=== PATIENT | female | born 1975 | race Caucasian/White ===

== ENCOUNTER 2017-11-01 07:34 | Outpatient (CLI) | payer OTHER ==
[~2017-11-01 07:34] MED LIST: AZITHROMYCIN500 MG PO; CONEX TABLET1 EACH PO; PROTONIX40 M1; PROVENTIL HFA6.7 GM IH; TUSICOF LIQUID120 ML PO; ZANTAC300 MG
== END 2017-11-01 09:17 | disposition home or self-care (01) ==
LOC: NUCLEAR 07:34
DX: Z08 Encounter for follow-up examination after completed treatment for malignant neoplasm (principal)
CPT/HCPCS: 78802; A9556

== ENCOUNTER 2018-04-12 13:42 | Outpatient (CLI) | payer OTHER | END 2018-04-12 13:51 | disposition home or self-care (01) | LOC: SONOGRAMA 13:42 → MAMO-SONO 14:00 | DX: R10.2 Pelvic and perineal pain (principal); N95.0 Postmenopausal bleeding ==

== ENCOUNTER → 2022-07-21 08:51 | Outpatient (CLI) | payer OTHER | END | disposition home or self-care (01) | LOC: MAMO-SONO 08:51 | PROVIDERS: ATTEND Internal Medicine Cardiovascular Disease | DX: Z12.31 Encounter for screening mammogram for malignant neoplasm of breast (principal); Z12.11 Encounter for screening for malignant neoplasm of colon ==

== ENCOUNTER 2022-08-03 09:29 | Outpatient (CLI) | payer OTHER | END 2022-08-03 09:30 | disposition home or self-care (01) | LOC: NUCLEAR 09:29 | PROVIDERS: ATTEND Internal Medicine Cardiovascular Disease | DX: M81.0 Age-related osteoporosis without current pathological fracture (principal); K91.86 Retained cholelithiasis following cholecystectomy | CPT/HCPCS: 77080; 78227; A9537; J2805 ==

== ENCOUNTER 2022-08-26 10:05 | Outpatient (CLI) | payer OTHER | END 2022-08-26 10:08 | disposition home or self-care (01) | LOC: RAD 10:05 | PROVIDERS: ATTEND Internal Medicine Cardiovascular Disease | DX: R10.2 Pelvic and perineal pain (principal); Z85.3 Personal history of malignant neoplasm of breast; M54.9 Dorsalgia, unspecified; I10 Essential (primary) hypertension ==

== ENCOUNTER 2023-09-21 12:41 | Outpatient (CLI) | payer OTHER | END 2023-09-21 13:05 | disposition home or self-care (01) | LOC: RAD 12:41 | PROVIDERS: ATTEND Internal Medicine Cardiovascular Disease | DX: M25.552 Pain in left hip (principal) ==

== ENCOUNTER 2023-09-28 14:37 | Outpatient (CLI) | payer OTHER | END 2023-09-28 14:47 | disposition home or self-care (01) | LOC: MAMO-SONO 14:37 | PROVIDERS: ATTEND Internal Medicine Cardiovascular Disease | DX: C50.919 Malignant neoplasm of unspecified site of unspecified female breast (principal); Z12.31 Encounter for screening mammogram for malignant neoplasm of breast ==

== ENCOUNTER 2024-01-26 06:36 | Day surgery (SDC) | payer OTHER ==
[2024-01-25 10:47] LABS: URINE APPEARANCE Clear; URINE BILIRRUBIN Negative (NEGATIVE); URINE BLOOD Negative; URINE COLOR Yellow; URINE GLUCOSE Negative (NEGATIVE); URINE LEUKOCYTE Trace; URINE NITRATE Negative; URINE PROTEIN Negative (NEGATIVE); URINE UROBILINOGEN 0.2 E.U./dl
[2024-01-25 10:51] LABS: URINE BACTERIA 109.6 uL (0.0-1933); URINE EPITHELIAL CELLS 8.1 uL (0.0-38.8); URINE RBC 4.3 uL (0.0-20.8); URINE WBC 4.4 uL (0.0-23.2)
[2024-01-25 11:25] LABS: INR 0.96; PARTIAL THROMBOPLASTIN TIME 32.1 SECONDS (22.0-34.0); PROTHROMBIN TIME 10.1 SECONDS (9.0-11.5)
[2024-01-25 11:29] LABS: ALBUMIN 3.8 gm/dL (3.4-5.0); BILIRUBIN TOTAL 1.04 mg/dL (0.3-1.2); CALCIUM 9.2 mg/dL (8.5-10.1); CREATININE SERUM 0.52 mg/dL (0.55-1.02); GFR 124.82; GLOBULINA 3.5 G/DL (2.4-3.5); POTASSIUM 4.08 mEq/L (3.5-5.1); TOTAL PROTEIN 7.3 gm/dL (6.4-8.2)
[2024-01-25 11:30] LABS: HEMATOCRIT 38.7 % (36.0-45.00); HEMOGLOBIN 13.7 g/dL (12.0-15.00); MEAN CELL VOLUME 95.6 fL (80.00-100.00); MEAN CORPUSCULAR HEMOGLOBIN 33.9 pg (27.00-32.0); MEAN CORPUSCULAR HGB CONC 35.5 g/dl (32.0-36.0); PLATELET COUNT 270 K/uL (150-450); RED BLOOD COUNT 4.05 M/uL (4.00-6.00); RED CELL DISTRIBUTION WIDTH 12.2 % (11.5-14.5)
[~2024-01-26] VITALS: Ht 157.5 cm; Wt 59.0 kg
[~2024-01-26 06:36] MED LIST changes: +B-100 COMPLEX100 MG PO; +VITAMIN C100 MG PO
[2024-01-26] MEDS ORDERED: CLINDAMYCIN PHOSPHATE 150 MG/ML (900mg) ONE (09:10)
[2024-01-26] MEDS ORDERED: BUPIVACAINE HCL/PF 0.5% 30ML ML ONE (09:39)
[2024-01-26] MEDS ORDERED: POVIDONE-IODINE SCRUB 118 ML BOTT TOP ONE ×2 (09:39→12:15)
[2024-01-26] MEDS ORDERED: GENTAMICIN SULFATE 40 MG/ML VIAL ONE (09:39)
[2024-01-26] MEDS ORDERED: POVIDONE-IODINE 118 ML BOTT TOP ONE ×4 (09:39→12:15)
[2024-01-26] MEDS ORDERED: CEFAZOLIN SODIUM 1,000 MG VIAL ONE (09:39)
[2024-01-26] MEDS ORDERED: GENTAMICIN SULFATE 40 MG/ML VIAL IR ONE (12:15)
[2024-01-26] MEDS ORDERED: CEFAZOLIN SODIUM 1,000 MG VIAL IV ONE (12:15)
== END 2024-01-26 16:20 | disposition home or self-care (01) ==
LOC: CIR.AMB 06:36
PROVIDERS: ATTEND Surgery
DX: D48.61 Neoplasm of uncertain behavior of right breast (principal); N60.21 Fibroadenosis of right breast; D24.1 Benign neoplasm of right breast; D18.09 Hemangioma of other sites; R92.1 Mammographic calcification found on diagnostic imaging of breast; D24.2 Benign neoplasm of left breast; D48.62 Neoplasm of uncertain behavior of left breast; R59.0 Localized enlarged lymph nodes; Z90.13 Acquired absence of bilateral breasts and nipples

== ENCOUNTER 2024-11-20 11:35 | Outpatient (CLI) | payer OTHER | END 2024-11-20 11:42 | disposition home or self-care (01) | LOC: SONOGRAMA 11:35 | PROVIDERS: ATTEND Surgery | DX: N60.11 Diffuse cystic mastopathy of right breast (principal); N60.12 Diffuse cystic mastopathy of left breast ==

== ENCOUNTER → 2024-12-03 13:03 | Outpatient (CLI) | payer OTHER | END | disposition home or self-care (01) | LOC: NUCLEAR 13:03 | PROVIDERS: ATTEND Internal Medicine Cardiovascular Disease | DX: M81.0 Age-related osteoporosis without current pathological fracture (principal) ==